=== PATIENT | male | born 1980 | race Two or more races ===

== ENCOUNTER 2018-05-06 02:32 | Emergency (ER) | payer OTHER ==
[~2018-05-06] VITALS: Ht 172.7 cm; Wt 68.0 kg
[2018-05-06 02:37] VITALS: BP 127/84
== END 2018-05-06 03:34 | disposition home or self-care (01) ==
LOC: ER 02:33
DX: S40.261A Insect bite (nonvenomous) of right shoulder, initial encounter (principal); W57.XXXA Bitten or stung by nonvenomous insect and other nonvenomous arthropods, initial encounter; Y93.89 Activity, other specified; Y92.89 Other specified places as the place of occurrence of the external cause; Y99.8 Other external cause status
CPT/HCPCS: 99282; A4606; Z7610